=== PATIENT | female | born 1940 | race Caucasian/White ===

== ENCOUNTER → 2017-05-03 | Outpatient (CLI) | payer MEDICARE, OTHER ==
--- NOTE | 2017-05-03 12:01 | FL ---
EXAMINATION TYPE: FL barium swallow w video DATE OF EXAM ORDERED: 05/03/2017 HISTORY: R13.10 dysphagia. COMPARISON: None. TECHNIQUE: The patient was challenged with varying food substances ranging from thin liquids through solids. FINDINGS: There are mild follicular residuals. There was no evidence of penetration or aspiration. IMPRESSION: MILD RESIDUALS.
== END | disposition home or self-care (01) ==
LOC: RADFLMAIN 11:25
PROVIDERS: ATTEND Internal Medicine
DX: R13.10 Dysphagia, unspecified (principal)
CPT/HCPCS: 74230